=== PATIENT | male | born 1950 | race Hispanic/Latino ===

== ENCOUNTER → 2024-04-12 | Outpatient (CLI) | payer OTHER ==
[2024-04-12 12:16] LABS: ABG BASE EXCESS 1.5 mmol/L (-2.0-3.0); ABG HCO3 24.2 mmol/L (21.0-28.0); ABG OXYGEN SATURATION 97.9 % (95.0-99.0); ABG PCO2 33 mmHg (35-48); ABG PH 7.486 (7.35-7.450); CARBON MONOXIDE 0.2; DEVICE COMMENT RR; HHb 2.1; PO2, ARTERIAL BG 106.7 mmHg (83.0-108.0); VENT MODE, BG ROOM AIR (ROOM AIR)
== END | disposition home or self-care (01) ==
LOC: LAB 11:27
PROVIDERS: ATTEND Nurse Practitioner Family
DX: J96.10 Chronic respiratory failure, unspecified whether with hypoxia or hypercapnia (principal); Z79.899 Other long term (current) drug therapy
CPT/HCPCS: 36600; 82435; 82803; 82947; 83605; 84132; 84295; 85018